=== PATIENT | male | born 1985 | race Caucasian/White ===

== ENCOUNTER 2018-09-05 19:15 | Emergency (ER) | payer SELFPAY ==
[~2018-09-05] VITALS: Ht 180.3 cm; Wt 88.5 kg
[2018-09-05] MEDS ORDERED: TETANUS/DIPHTHERIA TOX ADULT 0.5 ML SYR IM ONE (19:45)
[2018-09-05 20:22] VITALS: BP 117/72
--- NOTE | 2018-09-05 20:22 | Diagnostic Imaging Report ---
FOOT LEFT COMPLETE - 3 views HISTORY: Pain COMPARISON: None available. FINDINGS: Bones: No acute displaced fracture. Osseous alignment is within normal limits. Joints: The joint spaces are well-maintained. Soft tissues: The soft tissues appear unremarkable. IMPRESSION: No acute radiographic abnormality. No radiopaque foreign body. Signed by: Dr. Willie Roberts MD on 09/05/2018 8:19 PM
== END 2018-09-05 20:26 | disposition home or self-care (01) ==
LOC: ER 19:15
DX: S91.332A Puncture wound without foreign body, left foot, initial encounter (principal); W45.0XXA Nail entering through skin, initial encounter; Y93.01 Activity, walking, marching and hiking; Y92.008 Other place in unspecified non-institutional (private) residence as the place of occurrence of the external cause
CPT/HCPCS: 90714; 96372; 99283